=== PATIENT | male | born 1995 | race Caucasian/White ===

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

== ENCOUNTER 2019-02-15 14:35 | Emergency (ER) | payer MEDICAID, OTHER ==
[2019-02-15 15:04] VITALS: BP 136/83
--- NOTE | 2019-02-15 16:05 | UC ---
Complaint Male HPI - HPI Summary HPI Summary: 23-year-old male comes in with a chief complaint of a rash on the glans of his penis. He noticed it today. Physical most of just started last couple of days she has not seen before. It is not painful it is not itchy. Patient does have psoriasis. No burning with urination no sign of STI. His girlfriend does have a history of HSV. - History of Current Complaint Chief Complaint: UCSkin Stated Complaint: PERSONAL Time Seen by Provider: 02/15/19 14:57 Pain Intensity: 0 - Allergies/Home Medications Allergies/Adverse Reactions: Allergies Allergy/AdvReac Type Severity Reaction Status Date / Time No Known Allergies Allergy Verified 02/15/19 15:04 PMH/Surg Hx/FS Hx/Imm Hx Previously Healthy: Yes - psoriasis - Surgical History Surgical History: None - Family History Known Family History: Positive: Non-Contributory - Social History Alcohol Use: Weekly Substance Use Type: None Smoking Status (MU): Current Some Day Smoker Type: Cigarettes Amount Used/How Often: 2 years Review of Systems All Other Systems Reviewed And Are Negative: Yes Constitutional: Positive: Negative Skin: Positive: Other - see hpi Eyes: Positive: Negative ENT: Positive: Negative Respiratory: Positive: Negative Cardiovascular: Positive: Negative Gastrointestinal: Positive: Negative Genitourinary: Positive: Negative, Other - see hpi. Negative: Dysuria, Vaginal/ Penile Discharge Motor: Positive: Negative Neurovascular: Positive: Negative Musculoskeletal: Positive: Negative Neurological: Positive: Negative Psychological: Positive: Negative Is Patient Immunocompromised?: No Physical Exam Triage Information Reviewed: Yes Appearance: Well-Appearing, No Pain Distress, Well-Nourished Vital Signs: Initial Vital Signs Temp 99.8 F 02/15/19 14:56 Pulse 64 02/15/19 14:56 Resp 18 02/15/19 14:56 BP 136/83 02/15/19 14:56 Pulse Ox 100 02/15/19 14:56 Vital Signs Reviewed: Yes Eye Exam: Normal Eyes: Positive: Conjunctiva Clear Neck: Positive: Supple Respiratory: Positive: No respiratory distress Musculoskeletal Exam: Normal Musculoskeletal: Positive: Strength Intact, ROM Intact Neurological Exam: Normal Neurological: Positive: Alert, Muscle Tone Normal Psychological Exam: Normal Psychological: Positive: Age Appropriate Behavior Skin: Positive: Other - On the glans of the penis on the dorsal aspect there are multiple 1 mm raised papules. It appears that one area has coalesced into a flat smooth plaque 4 mm in diameter. Patient also has scaly patches around his bellybutton and in his scalp and behind his left ear. Complaint Male Course/Dx - Course Course Of Treatment: Screen for HIV HSV syphilis gonorrhea and chlamydia are all pending. Because of the location of the rash I will treat initially is balance tightness with Chlortrimazole 1% twice a day for 7 days. If that does not improve he'll switch over to tie hydrocortisone 1% twice a day for 7 days. The plan will be to follow-up with dermatology either way as patient is requesting more information on how to treat his psoriasis. Also if the penile rash is not improved he'll need further evaluation. - Differential Dx/Diagnosis Provider Diagnosis: Rash of penis, Psoriasis Discharge - Sign-Out/Discharge Documenting (check all that apply): Patient Departure All imaging exams completed and their final reports reviewed: No Studies - Discharge Plan Condition: Stable Disposition: HOME Prescriptions: Clotrimazole 1 applic TOPICAL BID 7 Days #14 gm Hydrocortisone 1 applic TOPICAL BID 7 Days #30 gm Patient Education Materials: Psoriasis (ED), Balanitis (ED) Referrals: Jim Rocha PA [Primary Care Provider] - Ajay Luu MD [Medical Doctor] - Additional Instructions: FOLLOW UP WITH DERMATOLOGY FOR YOUR NEW RASH AND FOR YOUR PSORIASIS. APPLY THE CLOTIMAZOLE TWICE A DAY FOR 7 DAYS. IF NO IMPROVEMENT, APPLY THE HYDROCORTISONE TWICE A DAY FOR 7 DAYS. IF NO IMPROVEMENT, DO NOT CONTINUE THE HYDROCORTISONE IT CAN THIN THE SKIN IF YOU CONTINUE TO USE IT. GET RECHECKED SOONER IF YOUR CONDITION WORSENS OR ANY QUESTIONS OR CONCERNS. - Billing Disposition and Condition Condition: STABLE Disposition: Home
[2019-02-17 13:59] LABS: Neisseria gonorrhoeae (GC) RNA Negative (Negative)
[2019-02-18 14:42] LABS: Herpes Simplex Virus I IgG AB Positive (Negative); Herpes Simplex Virus II IgG AB Negative (Negative)
--- NOTE | 2019-02-19 08:00 | UC ---
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 Which means you have been exposed to oral herpes at some point in the past. Most of the population has HSV 1. HSV acute infection is negative. You are negative for prior exposure to genital herpes - HSV II. If you are continuing to have symptoms recommend follow up with dermatology or follow up with primary care provider or return to urgent care. Course/Dx - Diagnoses Provider Diagnoses: Rash of penis, Psoriasis Discharge - Sign-Out/Discharge Documenting (check all that apply): Post-Discharge Follow Up All imaging exams completed and their final reports reviewed: No Studies - Discharge Plan Condition: Stable Disposition: HOME Prescriptions: Clotrimazole 1 applic TOPICAL BID 7 Days #14 gm Hydrocortisone 1 applic TOPICAL BID 7 Days #30 gm Patient Education Materials: Psoriasis (ED), Balanitis (ED) Referrals: Ajay Luu MD [Medical Doctor] - Jim Rocha PA [Primary Care Provider] - Additional Instructions: FOLLOW UP WITH DERMATOLOGY FOR YOUR NEW RASH AND FOR YOUR PSORIASIS. APPLY THE CLOTIMAZOLE TWICE A DAY FOR 7 DAYS. IF NO IMPROVEMENT, APPLY THE HYDROCORTISONE TWICE A DAY FOR 7 DAYS. IF NO IMPROVEMENT, DO NOT CONTINUE THE HYDROCORTISONE IT CAN THIN THE SKIN IF YOU CONTINUE TO USE IT. GET RECHECKED SOONER IF YOUR CONDITION WORSENS OR ANY QUESTIONS OR CONCERNS. - Billing Disposition and Condition Condition: STABLE Disposition: Home
== END 2019-02-15 16:30 | disposition home or self-care (01) ==
LOC: UCCORT 14:35
DX: R21 Rash and other nonspecific skin eruption (principal); L40.9 Psoriasis, unspecified; Z20.828 Contact with and (suspected) exposure to other viral communicable diseases; F17.210 Nicotine dependence, cigarettes, uncomplicated
CPT/HCPCS: 36415; 86694; 86695; 86696; 86703; 86780; 87491; 87591; 99212; G0463